=== PATIENT | female | born 1945 | race African-American/Black ===

== ENCOUNTER 2024-12-23 19:03 | Inpatient (IN) | payer OTHER ==
[2024-12-23 19:41] VITALS: BMI 21.1
[2024-12-23] MEDS ORDERED: ACETAMINOPHEN INJECTION 100 ML ONE (21:02)
[2024-12-23] MEDS: ACETAMINOPHEN 1000 MG/100 ML BAG IVPB ONE (21:27)
[2024-12-23 21:36] LABS: ABSOLUTE IMMATURE GRANULOCYTES 0.02 x10^3/uL (0.0-0.031); BASOPHILS # 0.09 x10^3/uL (0.01-0.08); EOSINOPHIL % 0.2 % (0.7-5.8); EOSINOPHILS # 0.02 x10^3/uL (0.04-0.36); HEMATOCRIT 35.9 % (34.1-44.9); HEMOGLOBIN 10.8 g/dL (11.2-15.7); MCHC 30.1 g/dl (32.2-35.5); MEAN CELL VOLUME 72.7 fl (79.4-94.8); MEAN PLT VOLUME 9.9 fl (9.4-12.3); MONOCYTE # 0.81 x10^3/uL (0.24-0.86); MONOCYTE % 8.2 % (4.7-12.5); PLATELET COUNT 620 x10^3/uL (182-369); RDW 18.4 % (12.4-16.6)
[2024-12-23 21:45] LABS: INR 1.48 (0.83-1.09); PROTHROMBIN TIME (PATIENT) 16.1 SEC (9.7-13.0)
[2024-12-23 21:48] LABS: ACTIVATED PTT 40.4 SECONDS (25.2-36.5)
[2024-12-23 22:01] LABS: POTASSIUM 4.3 mmol/L (3.5-5.1)
[2024-12-23 22:04] LABS: ALBUMIN 2.8 g/dl (3.4-5.0); CALCIUM 9.8 mg/dL (8.5-10.1)
[2024-12-23 22:07] LABS: CREATININE 0.6 mg/dL (0.55-1.3)
[2024-12-23 22:08] LABS: BILIRUBIN,TOTAL 0.7 mg/dL (0.2-1); TOT PROT 6.7 g/dl (6.4-8.2)
[2024-12-23] MEDS ORDERED: FAMOTIDINE 20 MG/50 ML IVPB 20 MG/50 ML MG IVPB ONE (23:40)
[2024-12-23] MEDS ORDERED: MAG HYDROX/AL HYDROX/SIMETH 30 ML UNIT-DOSE CUP ONE (23:40)
[2024-12-23] MEDS: MAG HYDROX/AL HYDROX/SIMETH 30 ML UNIT-DOSE CUP PO ONE (23:47)
[2024-12-23] MEDS: SODIUM CHLORIDE 0.9% 500 ML INFUS.BAG IV ONE (23:47)
[2024-12-23] MEDS: FAMOTIDINE 20 MG/50 ML IVPB 20 MG/50 ML MG IVPB ONE (23:47)
[2024-12-24 00:06] LABS: EPI CELLS 2 /uL (0-25.1); HYALINE CASTS 6 /uL (0-3.1); URINE APPEARANCE CLOUDY; URINE BACTERIA 2279 /uL (0-1359); URINE BILIRUBIN 1+ (NEGATIVE); URINE COLOR DK YELLOW; URINE GLUCOSE (UA) NEGATIVE (NEGATIVE); URINE KETONE 1+ (NEGATIVE); URINE LEUK ESTERASE 1+ (NEGATIVE); URINE NITRITE POSITIVE (NEGATIVE); URINE PROTEIN 2+ (NEGATIVE); URINE UROBILINOGEN 0.2 mg/dL (0.2-1.0); URINE WBC 397 /uL (0-25.8)
[2024-12-24] MEDS ORDERED: MEROPENEM 1 GM VIAL (RESTRICTED TO ID) IVPB ONE (01:14)
[2024-12-24] MEDS: MEROPENEM 1 GM in DEXTROSE 5%-WATER 100 ML IVPB ONE (01:21)
[2024-12-24 01:23] LABS: CALCIUM 9.3 mg/dL (8.5-10.1)
[2024-12-24 01:24] LABS: ALBUMIN 2.9 g/dl (3.4-5.0); BLOOD UREA NITROGEN 9.7 mg/dL (7-18)
[2024-12-24 01:27] LABS: CREATININE 0.7 mg/dL (0.55-1.3)
[2024-12-24 01:28] LABS: BILIRUBIN,TOTAL 0.7 mg/dL (0.2-1)
[2024-12-24 01:30] LABS: TOT PROT 6.6 g/dl (6.4-8.2)
[2024-12-24 02:18] LABS: YEAST FEW SEEN (NEGATIVE)
[2024-12-24] MEDS: SODIUM CHLORIDE 1,000 ML IV SCH (03:46)
[2024-12-24 06:26] LABS: BLOOD UREA NITROGEN 9.4 mg/dL (7-18); CALCIUM 8.5 mg/dL (8.5-10.1); CREATININE 0.6 mg/dL (0.55-1.3); HEMATOCRIT 31.2 % (34.1-44.9); HEMOGLOBIN 9.4 g/dL (11.2-15.7); MAGNESIUM 1.7 mg/dL (1.8-2.4); MCHC 30.1 g/dl (32.2-35.5); MEAN CELL VOLUME 73.2 fl (79.4-94.8); PHOSPHOROUS 2.4 mg/dL (2.5-4.9); PLATELET COUNT 541 x10^3/uL (182-369); POTASSIUM 3.5 mmol/L (3.5-5.1); RDW 18.4 % (12.4-16.6)
[2024-12-24] MEDS ORDERED: MAGNESIUM SULFATE IN WATER 2 GM/50 ML IVPB IVPB ONE (07:52)
[2024-12-24] MEDS ORDERED: ALBUTEROL SO4 2.5/IPRATROPIUM 0.5 INH SOL 3 ML VIAL.NEB. NEB ONE (07:52)
[2024-12-24] MEDS: MAGNESIUM SULFATE IN WATER 2 GM/50 ML IVPB IVPB ONE (08:14)
[2024-12-24] MEDS: ALBUTEROL SO4 2.5/IPRATROPIUM 0.5 INH SOL 3 ML VIAL.NEB. NEB SCH (08:14)
[2024-12-24] MEDS ORDERED: VANCOMYCIN HCL 125 MG CAPSULE (RESTRICTED TO ID ONLY) PO SCH (10:00)
[2024-12-24] MEDS: MULTIVITAMINS THER W-MINERALS COMBO TABLET (FP) PO SCH (12:21)
[2024-12-24] MEDS: VANCOMYCIN HCL 125 MG CAPSULE (RESTRICTED TO ID ONLY) PO SCH (12:21)
[2024-12-24] MEDS: ERTAPENEM SODIUM 1 GM in SODIUM CHLORIDE 50 ML IVPB SCH (12:21)
[2024-12-24 13:45] LABS: IRON SERUM 84 ug/dL (50-175)
[2024-12-24 13:46] LABS: TOTAL IRON BINDING CAPACITY 185 ug/dL (250-450)
[2024-12-24] MEDS: ACETAMINOPHEN 1000 MG/100 ML BAG IVPB PRN (21:59)
[2024-12-25 08:38] LABS: ABSOLUTE IMMATURE GRANULOCYTES 0.03 x10^3/uL (0.0-0.031); BASOPHILS # 0.07 x10^3/uL (0.01-0.08); EOSINOPHIL % 2.2 % (0.7-5.8); EOSINOPHILS # 0.15 x10^3/uL (0.04-0.36); HEMATOCRIT 25.7 % (34.1-44.9); HEMOGLOBIN 7.6 g/dL (11.2-15.7); MCHC 29.6 g/dl (32.2-35.5); MEAN CELL VOLUME 72.8 fl (79.4-94.8); MEAN PLT VOLUME 9.3 fl (9.4-12.3); MONOCYTE # 0.82 x10^3/uL (0.24-0.86); MONOCYTE % 11.9 % (4.7-12.5); PLATELET COUNT 476 x10^3/uL (182-369); RDW 18.6 % (12.4-16.6)
[2024-12-25 09:00] LABS: POTASSIUM 3.8 mmol/L (3.5-5.1)
[2024-12-25 09:09] LABS: BLOOD UREA NITROGEN 8.4 mg/dL (7-18); CALCIUM 8.3 mg/dL (8.5-10.1)
[2024-12-25 09:12] LABS: ALBUMIN 2.2 g/dl (3.4-5.0); CREATININE 0.6 mg/dL (0.55-1.3)
[2024-12-25 09:14] LABS: BILIRUBIN,TOTAL 0.4 mg/dL (0.2-1)
[2024-12-25] MEDS: VITAMINS A AND D TOPICAL OINTMENT TP SCH (13:40)
[2024-12-25] MEDS: ZINC OXIDE/PETROLATUM,WHITE 1 APPLIC OINT...G. TP SCH (13:41)
[2024-12-25 15:34] LABS: HEPATITIS B SURF AG NON-MATERN REACTIVE (NONREACTIVE)
[2024-12-25 17:11] LABS: HCV DIAGNOSTIC IN-HOUSE W/RFLX NON-REACTIVE (NONREACTIVE)
[2024-12-25] MEDS: ACETAMINOPHEN 1000 MG/100 ML BAG IVPB ONE (20:50)
[2024-12-25] MEDS: PANTOPRAZOLE 40 MG TABLET PO SCH (21:14)
[2024-12-26] MEDS ORDERED: ACETAMINOPHEN 1000 MG/100 ML BAG IVPB PRN (07:58)
[2024-12-26 08:33] LABS: ABSOLUTE IMMATURE GRANULOCYTES 0.01 x10^3/uL (0.0-0.031); BASOPHILS # 0.04 x10^3/uL (0.01-0.08); EOSINOPHIL % 2.8 % (0.7-5.8); EOSINOPHILS # 0.13 x10^3/uL (0.04-0.36); HEMATOCRIT 24.9 % (34.1-44.9); HEMOGLOBIN 7.5 g/dL (11.2-15.7); MCHC 30.1 g/dl (32.2-35.5); MEAN CELL VOLUME 72.4 fl (79.4-94.8); MEAN PLT VOLUME 9.8 fl (9.4-12.3); MONOCYTE # 0.56 x10^3/uL (0.24-0.86); MONOCYTE % 11.9 % (4.7-12.5); PLATELET COUNT 326 x10^3/uL (182-369)
[2024-12-26 08:56] LABS: ALBUMIN 2.1 g/dl (3.4-5.0); BLOOD UREA NITROGEN 5.8 mg/dL (7-18); CALCIUM 8.5 mg/dL (8.5-10.1)
[2024-12-26 08:59] LABS: CREATININE 0.5 mg/dL (0.55-1.3)
[2024-12-26 09:01] LABS: BILIRUBIN,TOTAL 0.5 mg/dL (0.2-1); TOT PROT 4.9 g/dl (6.4-8.2)
[2024-12-26] MEDS ORDERED: FAMOTIDINE 20 MG TABLET PO SCH (10:00)
[2024-12-26] MEDS: AMINO ACIDS/PROTEIN HYDROLYS 30 ML LIQUID.PKT PO SCH (14:35)
[2024-12-26] MEDS: DEXTROSE 5%-0.45% SALINE 1,000 ML IV SCH (14:35)
[2024-12-26 14:51] LABS: Reticulocyte % 2.21 % (0.5-1.7)
[2024-12-26] MEDS: PANTOPRAZOLE SODIUM 40 MG VIAL IVPUSH SCH (21:21)
[2024-12-27 10:44] LABS: ABSOLUTE IMMATURE GRANULOCYTES 0.01 x10^3/uL (0.0-0.031); BASOPHILS # 0.02 x10^3/uL (0.01-0.08); EOSINOPHIL % 2.8 % (0.7-5.8); HEMATOCRIT 24.9 % (34.1-44.9); HEMOGLOBIN 7.3 g/dL (11.2-15.7); MCHC 29.3 g/dl (32.2-35.5); MEAN CELL VOLUME 74.1 fl (79.4-94.8); MONOCYTE # 0.56 x10^3/uL (0.24-0.86); MONOCYTE % 15.6 % (4.7-12.5); PLATELET COUNT 435 x10^3/uL (182-369); RDW 18.9 % (12.4-16.6)
[2024-12-27 11:05] LABS: POTASSIUM 3.4 mmol/L (3.5-5.1)
[2024-12-27 11:07] LABS: CALCIUM 8.6 mg/dL (8.5-10.1)
[2024-12-27 11:08] LABS: ALBUMIN 2.2 g/dl (3.4-5.0); BLOOD UREA NITROGEN 6.5 mg/dL (7-18); MAGNESIUM 1.8 mg/dL (1.8-2.4)
[2024-12-27 11:11] LABS: CREATININE 0.6 mg/dL (0.55-1.3)
[2024-12-27 11:12] LABS: BILIRUBIN,TOTAL 0.5 mg/dL (0.2-1); TOT PROT 5.2 g/dl (6.4-8.2)
[2024-12-28 09:11] LABS: ABSOLUTE IMMATURE GRANULOCYTES 0.01 x10^3/uL (0.0-0.031); BASOPHILS # 0.03 x10^3/uL (0.01-0.08); EOSINOPHIL % 5.4 % (0.7-5.8); EOSINOPHILS # 0.21 x10^3/uL (0.04-0.36); HEMATOCRIT 26.4 % (34.1-44.9); HEMOGLOBIN 7.8 g/dL (11.2-15.7); MCHC 29.5 g/dl (32.2-35.5); MEAN CELL VOLUME 73.9 fl (79.4-94.8); MEAN PLT VOLUME 9.2 fl (9.4-12.3); MONOCYTE # 0.55 x10^3/uL (0.24-0.86); MONOCYTE % 14.1 % (4.7-12.5); PLATELET COUNT 414 x10^3/uL (182-369); RDW 19.3 % (12.4-16.6)
[2024-12-28 09:20] LABS: INR 1.26 (0.83-1.09); PROTHROMBIN TIME (PATIENT) 13.7 SEC (9.7-13.0)
[2024-12-28 09:32] LABS: POTASSIUM 3.6 mmol/L (3.5-5.1)
[2024-12-28 09:36] LABS: ALBUMIN 2.4 g/dl (3.4-5.0); BLOOD UREA NITROGEN 6.8 mg/dL (7-18); CALCIUM 8.9 mg/dL (8.5-10.1)
[2024-12-28 09:39] LABS: CREATININE 0.5 mg/dL (0.55-1.3)
[2024-12-28 09:41] LABS: BILIRUBIN,TOTAL 0.6 mg/dL (0.2-1); TOT PROT 5.3 g/dl (6.4-8.2)
[2024-12-29 07:57] LABS: ABSOLUTE IMMATURE GRANULOCYTES 0.01 x10^3/uL (0.0-0.031); BASOPHILS # 0.03 x10^3/uL (0.01-0.08); EOSINOPHIL % 7.5 % (0.7-5.8); EOSINOPHILS # 0.27 x10^3/uL (0.04-0.36); HEMATOCRIT 27.5 % (34.1-44.9); HEMOGLOBIN 8.1 g/dL (11.2-15.7); MCHC 29.5 g/dl (32.2-35.5); MEAN CELL VOLUME 73.9 fl (79.4-94.8); MEAN PLT VOLUME 9.9 fl (9.4-12.3); MONOCYTE # 0.57 x10^3/uL (0.24-0.86); MONOCYTE % 15.8 % (4.7-12.5); PLATELET COUNT 401 x10^3/uL (182-369); RDW 19.4 % (12.4-16.6)
[2024-12-29 08:03] LABS: INR 1.24 (0.83-1.09); PROTHROMBIN TIME (PATIENT) 13.6 SEC (9.7-13.0)
[2024-12-29 08:22] LABS: POTASSIUM 3.5 mmol/L (3.5-5.1)
[2024-12-29 08:37] LABS: CALCIUM 8.9 mg/dL (8.5-10.1)
[2024-12-29 08:38] LABS: ALBUMIN 2.3 g/dl (3.4-5.0); BLOOD UREA NITROGEN 7.6 mg/dL (7-18)
[2024-12-29 08:41] LABS: CREATININE 0.5 mg/dL (0.55-1.3)
[2024-12-29 08:42] LABS: BILIRUBIN,TOTAL 0.6 mg/dL (0.2-1); TOT PROT 5.3 g/dl (6.4-8.2)
[2024-12-29] MEDS: IRON SUCROSE INJECTION 200 MG in SODIUM CHLORIDE 100 ML IVPB ONE (10:37)
[2024-12-30 08:55] LABS: HEMATOCRIT 28.6 % (34.1-44.9); HEMOGLOBIN 8.4 g/dL (11.2-15.7); MCHC 29.4 g/dl (32.2-35.5); MEAN CELL VOLUME 73.9 fl (79.4-94.8); MEAN PLT VOLUME 9.4 fl (9.4-12.3); PLATELET COUNT 396 x10^3/uL (182-369); RDW 19.8 % (12.4-16.6)
[2024-12-30 09:28] LABS: POTASSIUM 3.5 mmol/L (3.5-5.1)
[2024-12-30 09:34] LABS: CALCIUM 8.9 mg/dL (8.5-10.1)
[2024-12-30 09:35] LABS: ALBUMIN 2.4 g/dl (3.4-5.0); BLOOD UREA NITROGEN 6.7 mg/dL (7-18); MAGNESIUM 1.7 mg/dL (1.8-2.4)
[2024-12-30 09:37] LABS: CREATININE 0.5 mg/dL (0.55-1.3)
[2024-12-30 09:38] LABS: PHOSPHOROUS 2.6 mg/dL (2.5-4.9)
[2024-12-30 09:39] LABS: BILIRUBIN,TOTAL 0.6 mg/dL (0.2-1); TOT PROT 5.4 g/dl (6.4-8.2)
[2024-12-30] MEDS: IRON SUCROSE INJECTION 200 MG in SODIUM CHLORIDE 100 ML IVPB ONE (10:02)
[2024-12-30] MEDS: MAGNESIUM OXIDE 400 MG TABLET (FP) PO ONE (10:41)
[2024-12-30 21:02] VITALS: RESP 18
[2024-12-30] MEDS: PANTOPRAZOLE 40 MG TABLET PO SCH (22:40)
[2024-12-31 09:24] LABS: HEMATOCRIT 28.7 % (34.1-44.9); HEMOGLOBIN 8.4 g/dL (11.2-15.7); MCHC 29.3 g/dl (32.2-35.5); MEAN CELL VOLUME 73.8 fl (79.4-94.8); MEAN PLT VOLUME 9.2 fl (9.4-12.3); PLATELET COUNT 370 x10^3/uL (182-369)
[2024-12-31 09:51] LABS: POTASSIUM 3.8 mmol/L (3.5-5.1)
[2024-12-31 09:53] LABS: ALBUMIN 2.3 g/dl (3.4-5.0); CALCIUM 8.9 mg/dL (8.5-10.1)
[2024-12-31 09:54] LABS: BLOOD UREA NITROGEN 7.7 mg/dL (7-18); MAGNESIUM 1.7 mg/dL (1.8-2.4)
[2024-12-31 09:56] LABS: PHOSPHOROUS 2.4 mg/dL (2.5-4.9)
[2024-12-31 09:57] LABS: CREATININE 0.5 mg/dL (0.55-1.3)
[2024-12-31 09:58] LABS: BILIRUBIN,TOTAL 0.5 mg/dL (0.2-1); TOT PROT 5.4 g/dl (6.4-8.2)
[2024-12-31] MEDS: MAGNESIUM SULFATE IN WATER 2 GM/50 ML IVPB IVPB ONE (14:50)
[2024-12-31] MEDS: MAGNESIUM OXIDE 400 MG TABLET (FP) PO ONE (15:55)
[2024-12-31] MEDS: NAPH,MB-DB/K PH,MBDB POWDER PACKET PO SCH (16:02)
[2024-12-31 19:01] VITALS: BP 127/60; PULSE 75; TEMP 98.1
== END 2024-12-31 20:30 | DRG 383 ==
LOC: JER 19:03 → JERBED 12-24 02:50 → J6S 12-24 09:01 → OBSVTOIN 12-24 11:33
PROVIDERS: ADMIT Internal Medicine; ATTEND Internal Medicine
PROC: 0DB98ZX Excision of Duodenum, Via Natural or Artificial Opening Endoscopic, Diagnostic (ICD-10-PCS; principal; 2024-12-29 15:30)
DX: K26.9 Duodenal ulcer, unspecified as acute or chronic, without hemorrhage or perforation (principal); E43 Unspecified severe protein-calorie malnutrition; T83.518A Infection and inflammatory reaction due to other urinary catheter, initial encounter; N39.0 Urinary tract infection, site not specified; K80.00 Calculus of gallbladder with acute cholecystitis without obstruction; A04.72 Enterocolitis due to Clostridium difficile, not specified as recurrent; D68.9 Coagulation defect, unspecified; K76.6 Portal hypertension; R64 Cachexia; Y83.9 Surgical procedure, unspecified as the cause of abnormal reaction of the patient, or of later complication, without mention of misadventure at the time of the procedure; K86.9 Disease of pancreas, unspecified; K74.60 Unspecified cirrhosis of liver; K29.90 Gastroduodenitis, unspecified, without bleeding; Z68.21 Body mass index [BMI] 21.0-21.9, adult
CPT/HCPCS: 36415; 71045-TC-FY; 74177-TC; 74183-TC; 74240-TC-FY; 76705-TC; 80048; 80053; 81003; 82272; 82607; 82728; 82746; 83540; 83550; 83605; 83690; 83735; 84100; 84443; 84484; 85025; 85027; 85610; 85730; 86704; 86705; 86708; 86803; 86850; 86900; 86901; 87040; 87045; 87046; 87086; 87186; 87209; 87324; 87328; 87329; 87338; 87340; 87449; 87517; 87798; 88305-TC; 93005; 93010; 93306-TC; 94640; 97116-GP; 97161-GP; 99285-25; G0378; J0131; J1756; Q9967

== ENCOUNTER 2025-01-24 10:29 | Emergency (ER) | payer OTHER ==
[2025-01-24 13:08] VITALS: BMI 22.2
[2025-01-24 13:22] LABS: ABSOLUTE IMMATURE GRANULOCYTES 0.02 x10^3/uL (0.0-0.031); BASOPHILS # 0.03 x10^3/uL (0.01-0.08); EOSINOPHIL % 6.6 % (0.7-5.8); EOSINOPHILS # 0.34 x10^3/uL (0.04-0.36); HEMATOCRIT 27.1 % (34.1-44.9); HEMOGLOBIN 7.9 g/dL (11.2-15.7); MCHC 29.2 g/dl (32.2-35.5); MEAN CELL VOLUME 75.1 fl (79.4-94.8); MONOCYTE # 0.82 x10^3/uL (0.24-0.86); PLATELET COUNT 206 x10^3/uL (182-369); RDW 25.7 % (12.5-17.0)
[2025-01-24 13:29] LABS: INR 1.28 (0.83-1.09); PROTHROMBIN TIME (PATIENT) 14.1 SEC (9.7-13.0)
[2025-01-24 13:53] LABS: POTASSIUM 4.9 mmol/L (3.5-5.1)
[2025-01-24 13:55] LABS: CALCIUM 8.9 mg/dL (8.5-10.1)
[2025-01-24 13:56] LABS: ALBUMIN 2.8 g/dl (3.4-5.0); BLOOD UREA NITROGEN 13.5 mg/dL (7-18)
[2025-01-24 13:59] LABS: CREATININE 0.9 mg/dL (0.55-1.3)
[2025-01-24 14:01] LABS: BILIRUBIN,TOTAL 0.8 mg/dL (0.2-1); TOT PROT 6.2 g/dl (6.4-8.2)
[2025-01-24 15:45] VITALS: BP 154/71; PULSE 76; RESP 21; TEMP 98.2
== END 2025-01-24 18:32 | disposition home or self-care (01) ==
LOC: JER 10:29
DX: D64.9 Anemia, unspecified (principal)
CPT/HCPCS: 36415; 80053; 85025; 85610; 85730; 86850; 86900; 86901; 93005; 93010; 99284-25